=== PATIENT | male | born 1980 ===

== ENCOUNTER 2017-08-25 16:32 | Outpatient (CLI) | payer OTHER | END 2017-08-25 17:01 | disposition home or self-care (01) | LOC: RAD 16:32 | DX: R07.89 Other chest pain (principal) ==

== ENCOUNTER 2021-03-09 12:00 | Outpatient (CLI) | payer OTHER | END 2021-03-09 12:05 | disposition home or self-care (01) | LOC: LAB 12:00 | PROVIDERS: ATTEND Internal Medicine Endocrinology, Diabetes & Metabolism | DX: Z20.828 Contact with and (suspected) exposure to other viral communicable diseases (principal) ==